=== PATIENT | female | born 1960 | race Caucasian/White ===

== ENCOUNTER → 2016-06-11 | Outpatient (CLI) | payer OTHER ==
[~2016-06-11] MED LIST: ASCO10003 PO; CHOL1000 PO; CHOL100010 PO; HYDR-5688 PO; MISCCAP80 PO; MULT-506 PO; OMEG10007 PO; TURM1CAP4 PO; [UNRECOGNIZED DRUG - OTHER] PO
[2016-06-11 16:39] LABS: BASO % 0.7 %; BASO ABS # 0.05 K/uL (0-0.2); COMPLETE YES; EOS % 4.3 %; HEMATOCRIT 37.1 % (37-47); IG% 0.1 %; LYMPH % 31.3 %; LYMPH ABS # 2.23 K/uL (1.2-3.4); MEAN CELL VOLUME 93.7 fL (80-100); MEAN CORPUSCULAR HEMOGLOBIN 31.3 pg (25-34); MEAN CORPUSCULAR HGB CONC 33.4 g/dl (32-36); MEAN PLATELET VOLUME 11.9 fL (7.4-10.4); MONO % 9.5 %; NEUT % 54.1 %; PLATELET COUNT 244 K/uL (130-400); RED BLOOD COUNT 3.96 M/uL (4.2-5.4); WHITE BLOOD COUNT 7.13 K/uL (4.8-10.8)
[2016-06-11 17:10] LABS: BLOOD UREA NITROGEN 13 mg/dl (7-18); CREATININE 0.69 mg/dl (0.60-1.20); GLUCOSE 81 mg/dl (70-99)
[2016-06-11 17:11] LABS: BUN/CREATININE RATIO 18.3 (10-20); CALCIUM 8.5 mg/dl (8.5-10.1); CARBON DIOXIDE 30 mmol/L (21-32); CHLORIDE 103 mmol/L (98-107); POTASSIUM 3.7 mmol/L (3.5-5.1); SODIUM 140 mmol/L (136-145)
== END | disposition home or self-care (01) ==
LOC: C.CPL 16:07
PROVIDERS: ATTEND Orthopaedic Surgery
DX: Z01.818 Encounter for other preprocedural examination (principal); M67.40 Ganglion, unspecified site

== ENCOUNTER → 2016-07-11 | Day surgery (SDC) | payer OTHER ==
[2016-07-01 15:33] VITALS: Ht 170.2 cm; Wt 72.3 kg
[~2016-07-11] VITALS: Ht 170.2 cm; Wt 72.3 kg
[~2016-07-11] MED LIST changes: +ATROPINE SULFATE 0.1 MG/ML 5ML SYR IV PRN; +CEFAZOLIN 2000 MG/60 ML D5W IV SCH; -CHOL100010 PO; +EpHEDrine SULFATE INJ 50 MG/ML AMP IV PRN; +FENTANYL CITRATE INJ 50 MCG/1 ML 2 ML VIAL IV PRN; +FENTANYL CITRATE INJ 50 MCG/1 ML 2 ML VIAL ONE; +HYDROCODONE/ACETAMOPHEN 5/325MG TAB PO PRN; +LACTATED RINGER'S 1000ML 1,000 ML IV SCH; +LIDOCAINE HCL 2% 2 ML VIAL (20MG/ML) ONE; +LIDOCAINE HCL 2% LOCAL 20 ML VIAL ONE; +MIDAZOLAM HCL 1 MG/ML 2ML VIAL ONE; +ONDANSETRON INJ 2 MG/ML 2 ML VIAL IV PRN; +PROPOFOL IV EMULSION 10 MG/ML 20 ML VIAL IV ONE; +SODIUM CHLORIDE 0.9% 1000ML 1,000 ML IV SCH
--- NOTE | 2016-07-11 06:47 | History & Physical Bridge - [place] ---
H&P Re-Evaluation Bridge Note: I have examined the patient, reviewed the History & Physical and in the interval since the performance of the History & Physical I have noted the following changes of clinical significance: No changes noted
[2016-07-11 07:31] VITALS: TEMP 36.4
--- NOTE | 2016-07-11 07:33 | [facility] Post Operative Brief Note ---
Immediate Operative Summary Operative Date Jul 11, 2016. Pre-Operative Diagnosis Right Hand Ganglion Cyst Post-Operative Diagnosis Same Procedure(s) Performed Right Hand Ganglion Cyst Excision Surgeon Dr Urban Certified Genetic Counselor Surgeon(s) Nick Lang PA-C Estimated Blood Loss Trace Findings as above Specimens None Complication(s) None Disposition Recovery Room / PACU
--- NOTE | 2016-07-11 07:33 | Discharge Instructions-SurgCtr ---
Discharge Instructions Date of Service Jul 11, 2016. Visit Reason for Visit: Right Hand Ganglion Cyst Discharge Discharge Diagnosis / Problem: SAME ABOVE Discharge Goals Goal(s): Decrease discomfort, Improve function Medications Stopped Medications Name(s): fish oil, turmaric, arthrex, probitic Restart Stopped Medication(s): MAY RESTART 07/11/2016 Activity Recommendations Activity Limitations: as noted below Lifting Limitations: gradually increase as tolerated Exercise/Sports Limitations: gradually increase as tolerated Driving or Machine Use: resume 1 day after discharge Anesthesia . Post Anesthesia Instructions: If you have had General Anesthesia or IV Sedation: * Do not drive today. * Resume driving when surgeon permits. * Do not make important decisions or sign legal documents today. * Call surgeon for: 1. Temperature elevations greater than 101 degrees F. 2. Uncontrollable pain. 3. Excessive bleeding. 4. Persistent nausea and vomiting. 5. Medication intolerance (nausea, vomiting or rash). * For nausea and vomiting use only clear liquids such as: tea, soda, bouillon until nausea subsides, then gradually increase diet as tolerated. * If you have any concerns or questions, call your surgeon's office. If physician is unavailable and it is an emergency, call 911 or go to the nearest emergency room. . Instructions / Follow-Up Instructions / Follow-Up MEDICATIONS: * Resume previous medications unless instructed otherwise by your surgeon. * Always take pain medication on a full stomach or with food to avoid upset stomach. * Do not drink alcohol or drive while taking narcotics. * Ibuprofen or Tylenol may be taken if narcotic not needed. SPECIAL CARE INSTRUCTIONS: __ None _X_ Keep extremity elevated and iced x 48 hours; apply ice 20-30 minutes 8-10 times/day. May remove at night. __ Sling __24 hrs/day __ Remove at night __ Shoulder Immobilizer __ 24 hrs/day __ Remove at night _X_ Dressing __ Maintain until seen in office, may shower with plastic over site _X_ Remove dressings in 5 DAYS. MAY SHOWER SOONER IF COVERED WITH PLASTIC BAG. _X_ Cover incisions with band-aids after showering __ Do not remove steri-strips Call physician if chills or temperature rises above 102 degrees or pain unrelieved by prescribed pain medications at . . Diet Recommendations Home Diet: no limitations Fluid Restriction: None Procedures Procedures Performed: Right Hand Ganglion Cyst Excision Pending Studies Studies pending at discharge: no Work Instructions Return To Work: 5 days (OR WHEN PAIN IS TOLERATED. NO HEAVY LIFTING OR GRIPPING WITH RIGHT HAND ) Lifting Limitations: no more than 10 pounds Medical Emergencies . Who to Call and When: Medical Emergencies: If at any time you feel your situation is an emergency, please call 911 immediately. . Non-Emergent Contact Non-Emergency issues call your: Primary Care Provider Call Non-Emergent contact if: you have a fever, temperature is above 101.5 . . "Provider Documentation" section prepared by Nolan Lang.
--- NOTE | 2016-07-11 07:42 | OPERATIVE REPORT ---
DATE OF OPERATION: 07/11/2016 PREOPERATIVE DIAGNOSIS: Ganglion cyst of the middle finger of the right hand. POSTOPERATIVE DIAGNOSIS: Same. PROCEDURE: Open excision ganglion cyst of the right hand. SURGEON: Dr. Morales Urban. FILM PROCESS OPERATOR: Nick Lang PA-C, whose assistance was necessary for positioning the arm and helping with retraction. ANESTHESIA: Sedation with local anesthetic. COMPLICATIONS: None. CONDITION: Stable to PACU. INDICATIONS: Kyung is a pleasant 56-year-old female who presented to my office with a mass right over the MCP joint on the flexor side of her right middle finger. It appeared to be a ganglion cyst. It was painful and annoying. After failing conservative treatment, she elected to proceed with open excision. OPERATION AND FINDINGS: On 07/11/2016 she arrived at [facility] for the above procedure. She was seen in the preoperative holding area and the operative extremity was identified and signed. She was given a preoperative antibiotic and taken back to the operating room, laid on the table in supine position and given basic sedation. The right hand was prepped and draped in sterile fashion. Time-out was done and the patient and operative extremity was properly identified. The surgical site was anesthetized with about 8 mL of lidocaine. A transverse incision was made directly in the flexor crease at the MCP joint of the right middle finger. Dissection was taken down through the fascia with care not to disrupt the digital nerves. The ganglion cyst was easily identified. It was a very large ganglion cyst. It was easily removed. There was obvious gangrenous material within the cyst. The capsule of the cyst was completely excised. Care was taken to ensure complete resection. The wound was then irrigated with saline solution and closed with 4-0 Monocryl suture and a subQ fashion. Steri-strips were placed. She was placed in a soft dressing and taken to the postanesthesia care unit in stable condition. She tolerated the procedure well. I attest to the content of the Intraoperative Record and any orders documented therein. Any exceptio ns are noted below.
--- NOTE | 2016-07-11 07:46 | Anesthesia Progress Nt - [facility] ---
Anesthesia Post Op Note Date & Time Jul 11, 2016 at 07:47 Vital Signs Pain Intensity: 0 Vital Signs Past 12 Hours Date Time Temp Pulse Resp B/P Pulse Ox O2 Delivery O2 Flow Rate FiO2 07/11/16 07:31 36.4 60 14 100/56 96 Room Air 07/11/16 06:36 36.8 82 16 114/75 97 Room Air Notes Mental Status: alert / awake / arousable, participated in evaluation Pt Amnestic to Procedure: Yes Nausea / Vomiting: adequately controlled Pain: adequately controlled Airway Patency, RR, SpO2: stable & adequate BP & HR: stable & adequate Hydration State: stable & adequate Anesthetic Complications: no major complications apparent
[2016-07-11 07:54] VITALS: BP 100/55; PULSE 55; O2SAT 98
== END | disposition home or self-care (01) ==
LOC: X.SURG 06:16
PROVIDERS: ATTEND Orthopaedic Surgery
DX: M67.441 Ganglion, right hand (principal); M79.641 Pain in right hand; Z87.09 Personal history of other diseases of the respiratory system

== ENCOUNTER 2017-09-15 20:35 | Emergency (ER) | payer OTHER ==
[~2017-09-15] VITALS: Ht 170.2 cm; Wt 73.0 kg
[~2017-09-15 20:35] MED LIST changes: -ATROPINE SULFATE 0.1 MG/ML 5ML SYR IV PRN; -CEFAZOLIN 2000 MG/60 ML D5W IV SCH; -EpHEDrine SULFATE INJ 50 MG/ML AMP IV PRN; -FENTANYL CITRATE INJ 50 MCG/1 ML 2 ML VIAL IV PRN; -FENTANYL CITRATE INJ 50 MCG/1 ML 2 ML VIAL ONE; -HYDR-5688 PO; -HYDROCODONE/ACETAMOPHEN 5/325MG TAB PO PRN; -LACTATED RINGER'S 1000ML 1,000 ML IV SCH; -LIDOCAINE HCL 2% 2 ML VIAL (20MG/ML) ONE; -LIDOCAINE HCL 2% LOCAL 20 ML VIAL ONE; -MIDAZOLAM HCL 1 MG/ML 2ML VIAL ONE; -ONDANSETRON INJ 2 MG/ML 2 ML VIAL IV PRN; -PROPOFOL IV EMULSION 10 MG/ML 20 ML VIAL IV ONE; -SODIUM CHLORIDE 0.9% 1000ML 1,000 ML IV SCH
[2017-09-15 20:37] VITALS: TEMP 36.7; Ht 170.2 cm; Wt 73.0 kg
[2017-09-15] MEDS ORDERED: HYDROCODONE/ACETAMIN 5/325MG TAB PO STA (20:50)
--- NOTE | 2017-09-15 21:29 | DIAGNOSTIC IMAGING REPORT ---
LEFT ANKLE 3 VIEWS HISTORY: Left ankle pain. Trauma COMPARISON: None. FINDINGS: There is no fracture or dislocation. Lateral soft tissue swelling. Small ossific density adjacent to the medial malleolus consistent with an old avulsion injury. No radiopaque foreign bodies. IMPRESSION: No acute fracture or dislocation within the left ankle. Electronically signed by: Francisco Laura M.D. 09/15/2017 9:27 PM Dictated Date/Time: 09/15/2017 9:25 PM
[2017-09-15] MEDS ORDERED: RANI300T2 PO (21:49)
[2017-09-15 22:00] VITALS: BP 133/63; PULSE 70; O2SAT 96
--- NOTE | 2017-09-15 22:07 | EMERGENCY ROOM VISIT NOTE ---
History Report prepared by Susie: Hiral Vaca Under the Supervision of: Dr. Callum Blankenship M.D. First contact with patient: 20:40 Chief Complaint: ANKLE PAIN Stated Complaint: FELL,SWOLLEN LEFT ANKLE History of Present Illness The patient is a 57 year old female who presents to the Emergency Room with complaints of constant left ankle pain starting 20 minutes ago. The patient stepped off of a stool and her ankle buckled. The pain worsens with bearing weight. She has been unable to bear weight at all. She notes that she has sprained both of her ankles in the past. Pt denies LOC, headache, visual changes , neck pain, chest pain, breathing difficulties, nausea, vomiting, abdominal pain, back pain, other extremity pain, numbness, weakness, active bleeding, or other complaints. Source of History: patient Onset: 20 minutes ago Position: ankle (left) Quality: other (injury pain) Timing: constant Modifying Factors (Worsening): other (weight bearing) Review of Systems See HPI for pertinent positives and negatives. A total of ten systems were reviewed and were otherwise negative. Past Medical & Surgical Medical Problems: (1) Asthma Family History Hypertension Social History Smoking Status: Never Smoker Marital Status: Housing Status: lives with family Occupation Status: employed Current/Historical Medications Scheduled Ascorbic Acid (Vitamin C), 1,000 MG PO QAM Cholecalciferol (Vitamin D3), 1,000 INTER.UNIT PO QAM Fish Oil ([employer]), 1 CAP PO QAM Multivitamin (Multivitamin), 1 TAB PO QAM Probiotic Product (Probiotic), 1 CAP PO QAM Ranitidine Hcl (Zantac), 300 MG PO HS Turmeric (Curcuma Longa) (Turmeric), 500 MG PO QAM Allergies Coded Allergies: Nitrofurantoin (Verified Allergy, Unknown, HIVES, 07/11/16) Sulfa Antibiotics (Verified Allergy, Unknown, HIVES, 07/11/16) Trimethoprim (Verified Allergy, Unknown, ? UNKNOWN, 07/11/16) Physical Exam Vital Signs Date Time Temp Pulse Resp B/P (MAP) Pulse Ox O2 Delivery O2 Flow Rate FiO2 09/15/17 22:00 70 18 133/63 96 09/15/17 21:59 70 18 133/63 96 Room Air 09/15/17 20:37 36.7 79 20 148/78 97 Room Air Physical Exam GENERAL: Awake, alert, mildly uncomfortable-appearing, in no distress HENT: Normocephalic, atraumatic. Oropharynx unremarkable. EYES: Normal conjunctiva. Sclera non-icteric. NECK: Supple. No nuchal rigidity. FROM. No masses. RESPIRATORY: Clear to auscultation. No wheezes. No rales. Normal respiratory effort. CARDIAC: Normal rate. Normal rhythm. No murmurs. No rubs. Extremities warm and well perfused. Pulses equal. No JVD. MUSCULOSKELETAL: Chest examination reveals no tenderness. There is no CVA tenderness to palpation. No joint edema. Tenderness and swelling to the lateral malleolus. No proximal fibula tenderness. No 5th metatarsal tenderness. No navicular tenderness. No medial malleolus tenderness. Small abrasion over the medial ankle. Remainder of the foot atraumatic. Upper extremities and RLE atraumatic. NEURO: Normal sensorium. No sensory or motor deficits noted. SKIN: No rash or jaundice noted. Medical Decision & Procedures ER Provider Diagnostic Interpretation: Radiology results as stated below per my review and radiologist interpretation: LEFT ANKLE 3 VIEWS HISTORY: Left ankle pain. Trauma COMPARISON: None. FINDINGS: There is no fracture or dislocation. Lateral soft tissue swelling. Small ossific density adjacent to the medial malleolus consistent with an old avulsion injury. No radiopaque foreign bodies. IMPRESSION: No acute fracture or dislocation within the left ankle. Electronically signed by: Francisco Laura M.D. 09/15/2017 9:27 PM Dictated Date/Time: 09/15/2017 9:25 PM Medications Administered Medications (Trade) Dose Ordered Sig/Anand Route Start Time Stop Time Status Last Admin Dose Admin Acetaminophen/ Hydrocodone Bitart ([place] 5/325 Tab) 1 tab NOW STAT PO 09/15/17 20:50 09/15/17 20:51 DC 09/15/17 20:55 1 TAB ED Course 2043: The patient was evaluated in room B9. A complete history and physical exam was performed. 2049: [place] 5/325 Tab 1 tab PO. 2135: I reevaluated the patient. Discussed results and discharge instructions: She verbalized understanding and agreement. The patient is ready for discharge. Medical Decision Prior records reviewed and summarized above. Triage Nursing notes reviewed and agree them. The patient's history was concerning for traumatic injury. Differential diagnosis: Etiologies such as fracture, dislocation, neurovascular compromise, compartment syndrome, soft tissue injury, as well as others were entertained. Physical examination: Consistent with an isolated left injury. ER treatment provided: Oral [place] Ice pack Gel ankle splint Crutches On reassessment the patient felt better. Diagnostics interpreted by me: Imaging studies: Xrays as above. No fracture. Consistent with ankle sprain. By the evaluation outlined above emergent etiologies such as fracture, dislocation, neurovascular compromise, compartment syndrome, infections, as well as others were deemed relatively unlikely. The patient was informed about the findings as listed above. All questions were answered and she pleased with the treatment. Return instructions were outlined and the patient was discharged in stable condition. Referral: The patient was referred to their primary care physician or orthopedist next week for a recheck of your current condition. Medication Reconcilliation Current Medication List: was personally reviewed by me Blood Pressure Screening Patient's blood pressure: Elevated blood pressure Blood pressure disposition: Elevated BP felt to be situational Impression Primary Impression: Left ankle sprain Scribe Attestation The scribe's documentation has been prepared under my direction and personally reviewed by me in its entirety. I confirm that the note above accurately reflects all work, treatment, procedures, and medical decision making performed by me. Departure Information Dispostion Home / Self-Care Referrals Jeffery Guy M.D.([facility]) (PCP) Forms HOME CARE DOCUMENTATION FORM, IMPORTANT VISIT INFORMATION Patient Instructions My [facility] Additional Instructions No driving today due to the medication given in the ER. Tylenol: Take 1000 mg every 6 hours as needed for pain. Do not take more than 3000 mg in a 24 hour period. And/or Ibuprofen(Motrin, Advil) may be used for fever or pain. Use 600mg every six hours as needed. Take with food. Avoid using more than 2400mg in a 24 hour period. Do not use 2400mg per day for more than three consecutive days without physician direction. Prolonged inappropriate use can lead to stomach upset or ulcers. Elevate the injured ankle. Ice compresses for 20 minutes at a time four times daily for 2-3 days. Use the brace and/or crutches as instructed. Begin walking as tolerated. May take 3 to 4 weeks for your ankle to return to normal. Your x-rays will be reviewed by our radiologist's and if there is any additional findings you will be notified. Follow-up with your primary physician or orthopedist next week for a recheck.
== END 2017-09-15 22:02 | disposition home or self-care (01) ==
LOC: C.EDB 20:35
DX: S93.402A Sprain of unspecified ligament of left ankle, initial encounter (principal); X50.1XXA Overexertion from prolonged static or awkward postures, initial encounter; J45.909 Unspecified asthma, uncomplicated; Z79.899 Other long term (current) drug therapy; Z88.2 Allergy status to sulfonamides; Z88.1 Allergy status to other antibiotic agents